=== PATIENT | male | born 1990 | race Caucasian/White ===

== ENCOUNTER 2022-03-16 13:42 | Inpatient (IN) | payer OTHER ==
[~2022-03-16] VITALS: Ht 170.2 cm; Wt 78.5 kg
[2022-03-16] MEDS ORDERED: VANCOMYCIN IV 200 ML ONE (13:58)
[2022-03-16] MEDS ORDERED: VANCOMYCIN IV 500 MG in IV DEXTROSE 5% 100 ML IV ONE (14:00)
[2022-03-16] MEDS ORDERED: VANCOMYCIN 1G/D5W 200 ML PIGGYBACK IV ONE (14:00)
[2022-03-16 14:04] LABS: HEMATOCRIT 42.5 % (36.7-47.1); MEAN CORPUSCULAR HEMOGLOBIN 31.3 uug (23.8-33.4); MEAN CORPUSCULAR VOLUME 91.9 fL (73.0-96.2); PLATELET COUNT (AUTO) 369 K/uL (152-348)
[2022-03-16 14:13] LABS: POTASSIUM 3.9 mmol/L (3.5-5.1)
--- NOTE | 2022-03-16 14:36 | NUR ---
dialysis chief equipment technician at bedside.
[2022-03-16 15:52] LABS: ALANINE AMINOTRANSFERASE 29 U/L (16-63); ALKALINE PHOSPHATASE 120 U/L (50-136); ASPARTATE AMINOTRANSFERASE 27 U/L (15-37); BILIRUBIN,DIRECT 0.1 mg/dL (0.0-0.2); BILIRUBIN,TOTAL 0.2 mg/dL (0.2-1.0)
--- NOTE | 2022-03-16 17:15 | NUR ---
Pt. admitted to [facility], under care of Dr. DAVIS Belongs List completed
[2022-03-16 18:06] VITALS: BP 119/86
--- NOTE | 2022-03-16 18:19 | NUR ---
Patient admitted into [facility]. Administration process complete. Dr. Issa notified. Orders placed.
[2022-03-16] MEDS ORDERED: ACETAMINOPHEN 325 MG TABLET PO PRN (18:45)
[2022-03-16] MEDS ORDERED: TEMAZEPAM 15 MG CAPSULE PO PRN (18:45)
[2022-03-16] MEDS ORDERED: ONDANSETRON 4 MG/2 ML VIAL IV PRN (18:45)
[2022-03-16] MEDS ORDERED: HYDROCODONE/APAP 5-325MG TABLET PO PRN (18:45)
[2022-03-16] MEDS ORDERED: MORPHINE SULFATE 2 MG/1 ML DISP.SYRIN IV PRN (18:45)
--- NOTE | 2022-03-16 19:45 | NUR ---
PT RECEIVED IN ROOM AWKE ALERT AND ORIENTED TO ALL. PT DENIES PAIN . PT STATES THAT HE'S ORDERED FOOD FROM OUTSIDE AND WAITING FOR DELIVERY. C/O R UPPER ARM PAIN AT THE IV SITE. R UPPER ARM INDURATION NOTED.SALINE LOCK REMOVED. DR DQUUE IS TO SEE PATIENT OBTAIN ORDER FOR NICOTINE PATCH. PT IS UNABLE TO EXTEND L ARM FROM HIS INJURY PRIOR TO ADMISSION AND KEEPS ARM AT AN ANGLE. NO SOB NOTED ON ROOM AIR.
[2022-03-16 20:00] VITALS: BP 148/92
[2022-03-16] MEDS: PIPERACILLIN SODIUM/TAZOBACTAM 3.375 G in IV DEXTROSE 5% 50 ML IV SCH (21:20)
[2022-03-16] MEDS: NICOTINE 21 MG/24HR PATCH TD SCH (23:04)
[2022-03-16] MEDS: VANCOMYCIN IV 1,000 MG in IV DEXTROSE 5% 250 ML IV SCH (23:10)
[2022-03-17 04:00] VITALS: BP 129/68
[2022-03-17] MEDS: PIPERACILLIN SODIUM/TAZOBACTAM 3.375 G in IV DEXTROSE 5% 50 ML IV SCH ×2 (05:48→08:28)
[2022-03-17] MEDS: VANCOMYCIN IV 1,000 MG in IV DEXTROSE 5% 250 ML IV SCH (05:51)
--- NOTE | 2022-03-17 05:53 | NUR ---
PT IS ASLEEP IN BED . RESP IS UNLABORED ANTIBIOTICS IN PROGRESS, PT IS AFEBRILE. NO C/O PAIN THIS SHIFT.
[2022-03-17 06:48] LABS: HEMATOCRIT 40.3 % (36.7-47.1); MEAN CORPUSCULAR HEMOGLOBIN 32.4 uug (23.8-33.4); MEAN CORPUSCULAR VOLUME 91.2 fL (73.0-96.2); PLATELET COUNT (AUTO) 344 K/uL (152-348)
[2022-03-17] MEDS ORDERED: PANTOPRAZOLE SODIUM 40 MG TABLET.DR PO SCH (07:00)
[2022-03-17 07:22] LABS: BILIRUBIN,TOTAL 0.6 mg/dL (0.2-1.0); CREATININE 0.9 mg/dL (0.6-1.3); MAGNESIUM 2.3 mg/dL (1.8-2.4); PHOSPHOROUS 3.9 mg/dL (2.5-4.9); POTASSIUM 3.7 mmol/L (3.5-5.1); TOTAL PROTEIN, SERUM 7.4 g/dL (6.4-8.2)
[2022-03-17] MEDS: NICOTINE 21 MG/24HR PATCH TD SCH (08:28)
[2022-03-17] MEDS ORDERED: DOXY100T2 PO (10:50)
--- NOTE | 2022-03-17 11:27 | NUR ---
Patient discharged from unit at 1125. IV site removed. ID band removed. Discharge education provided.
== END 2022-03-17 11:25 | disposition home or self-care (01) | DRG 720 ==
LOC: ER 13:42 → MEDSURG3 16:56
PROVIDERS: ADMIT Internal Medicine; ATTEND Internal Medicine
DX: A41.9 Sepsis, unspecified organism (principal); E87.1 Hypo-osmolality and hyponatremia; L03.114 Cellulitis of left upper limb; E66.8 Other obesity; Z68.27 Body mass index [BMI] 27.0-27.9, adult; F17.210 Nicotine dependence, cigarettes, uncomplicated
CPT/HCPCS: 36415; 71045; 73080; 83605; 83735; 84100; 84484; 85025; 93005; A4663; G0378; J2543; J3370; J7050